=== PATIENT | male | born 1935 | race Caucasian/White ===

== ENCOUNTER 2017-01-11 21:30 | Inpatient (IN) | payer MEDICARE, OTHER ==
[~2017-01-11] VITALS: Ht 170.2 cm; Wt 82.2 kg
[~2017-01-11 21:30] MED LIST: ASPI-628 PO; LOSA100T3 PO; SIMV20TA4 PO
[2017-01-11 21:34] VITALS: BP 113/63; PULSE 124; RESP 22; O2SAT 94
[2017-01-11 22:05] LABS: BASOPHILS % (AUTO) 0.3 % (0-3); EOSINOPHILS % (AUTO) 1.4 % (0-5); MONOCYTES % (AUTO) 4.2 % (4-12); Mean Corpuscular Hemoglobin 34.7 pg (27.0-35.0); Mean Corpuscular Volume 101.3 fL (81-100); NEUTROPHILS % (AUTO) 90.1 % (40-74); Platelet Count 171 bil/L (150-400)
[2017-01-11] MEDS ORDERED: Alum-Mag Hydrox-Simeth 30 mL Suspension PO PRN (22:55)
[2017-01-11] MEDS ORDERED: Ondansetron 2 mg/mL 2 mL Inj IVPUSH PRN (22:55)
--- NOTE | 2017-01-11 23:07 | ED.REPORT ---
HPI-General Illness Date of Service Jan 11, 2017 ED Provider: Michel Segura MD Patient is an 81 year old male with a history of pacemaker and hypertension who presents to the ED complaining of a fever onset 1929. Associated symptoms include chills and tremulous hands. The patient reports that around 1929 he began feeling extremely cold and his hands were shaking so he decided to go to bed and had to keep his clothes on due to how cold he was. He denies chest pain (note that per nursing staff, the chief complaint was chest tightness), shortness of breath, dysuria, rash, headache, neck stiffness, vomiting, diarrhea or abdominal pain. Per the patient's , the was hot to the touch. He reports a cough but states this is not a new symptom and has not changed since he has had it. The patient denies any recent travel or contact with anyone else who is sick. Nursing Notes Stated Complaint: CHEST TIGHTNESS, FEVER, COUGH Chief Complaint: Chest Pain Nursing Notes Reviewed: Yes Allergies: Coded Allergies: No Known Allergies (Verified , 06/02/14) Scheduled Aspirin (Aspir 81) 81 Mg Tablet.dr 81 MG PO DAILY Losartan Potassium (Cozaar) 100 Mg Tablet 100 MG PO DAILY Simvastatin (Simvastatin) 20 Mg Tablet 20 MG PO HS General Time Seen by MD: 22:52 Chief Complaint Fever Hx Obtained From: Patient, Spouse Arrived By: Walk-in Sudden in Onset?: Yes Onset Occurred: 1 - 4 hours ago Symptom Duration: Since onset Severity: Current: No pain currently Similar Sx Previous: No Past Medical History Past Medical History Reports: Hypertension Past Surgical History pacemaker Smoking History Former Smoker Social History Other Social History: Good social support, Ambulatory Status Independent Review of Systems Full Review of Systems Constitutional: Reports: Chills, Fever Respiratory: Reports: Non-productive cough (not a new symptom), Denies: Shortness of breath Cardiovascular: Denies: Chest pain GI: Denies: Abdominal pain, Diarrhea, Nausea, Vomiting Male: Denies Dysuria Musculoskeletal: Denies: Neck pain Skin: Denies Itching, Denies Rash Neurologic: Denies: Headache Complete sys rev & neg: except as marked. Physical Exam Vital Signs Vital Signs Date Time Temp Pulse Resp B/P Pulse Ox O2 Delivery O2 Flow Rate FiO2 01/11/17 21:34 38.1 124 22 113/63 94 Room Air Initial VS: Reviewed General/Constitutional: Awake, Alert, Well appearing, Not toxic appearing Head / Eyes: Atraumatic, Normocephalic, PERRL, EOMI Neck: Atraumatic, Supple, Full range of motion Respiratory / Chest: Atraumatic, Breath sounds NL, Breath sounds = bilat, No respiratory distress Cardiovascular: Regular rhythm, Heart sounds NL, No gallop, No murmurs, No rubs Heart Rate / Rhythm: Positive: Tachycardia Abdomen: Atraumatic, Soft, Non-tender, No distention tolerates firm palpation Upper Extremities Upper Extremity / MS: Atraumatic, Full range of motion Lower Extremity / Pelvis / MS: Atraumatic, Non-tender, No edema Skin: Atraumatic, Color NL, No rash, Warm, Dry Neurologic: Oriented X3, Speech NL Psychiatric: Affect NL, Mood NL Interpretation & Diagnostics Lab Results Interpretation Result Diagram: 01/11/175 01/11/17 2253 Test 01/11/17 21:55 01/11/17 22:01 01/11/17 22:53 01/11/17 23:53 White Blood Count 3.6th/mm3 (3.8-10.1) Red Blood Count 4.52mil/mm3 (4.40-5.80) Hemoglobin 15.7g/dL (13.8-17.2) Hematocrit 45.8% (41.0-50.0) Mean Corpuscular Volume 101.3fL (81-100) Mean Corpuscular Hemoglobin 34.7pg (27.0-35.0) Mean Corpuscular Hemoglobin Concent 34.3% (32.0-37.0) Red Cell Distribution Width 12.8% (12.3-15.4) Platelet Count 171bil/L (150-400) Neutrophils (%) (Auto) 90.1% (40-74) Lymphocytes (%) (Auto) 3.4% (14-46) Monocytes (%) (Auto) 4.2% (4-12) Eosinophils (%) (Auto) 1.4% (0-5) Basophils (%) (Auto) 0.3% (0-3) Lactic Acid Level 0.2mmol/L (0.4-2.0) Sodium Level 139mEq/L (134-144) Potassium Level 3.7mEq/L (3.5-5.2) Chloride Level 103mEq/L (97-108) Carbon Dioxide Level 18mmol/L (18-29) Blood Urea Nitrogen 16mg/dL (8-27) Creatinine 0.77mg/dL (0.76-1.27) Estimat Glomerular Filtration Rate 103mL/min (>59) Glucose Level 194mg/dL (60-99) Calcium Level 9.3mg/dL (8.5-10.1) Magnesium Level 1.6mg/dL (1.6-2.6) Total Bilirubin 0.7mg/dL (0.0-1.2) Aspartate Amino Transf (AST/SGOT) 767U/L (0-50) Alanine Aminotransferase (ALT/SGPT) 463U/L (0-44) Alkaline Phosphatase 105U/L (25-160) Troponin T < 0.010ug/L (0.0-0.011) Total Protein 7.0g/dL (6.4-8.4) Albumin 4.1g/dL (3.4-5.0) Hold Jesus Top Tube Received (Received) Test 01/12/17 00:52 Urine Color Dark yellow (YELLOW) Urine Appearance Clear (CLEAR,HAZY) Urine pH 5.5 (5.0-8.0) Urine Specific [place] 1.025 (1.003-1.035) Urine Protein Tracemg/dL (NEG,TRACE) Urine Glucose (UA) Negativemg/dL (NEGATIVE) Urine Ketones Tracemg/dL (NEGATIVE) Urine Occult Blood Negative (NEGATIVE) Urine Nitrite Negative (NEGATIVE) Urine Bilirubin Negative (NEGATIVE) Urine Urobilinogen Normalmg/dL (NORMAL) Urine Leukocyte Esterase Negative (NEGATIVE) Urine RBC 0-2/hpf (0-2) Urine WBC 0-5/hpf (0-5) Urine Epithelial Cells Occasional/hpf (NONE-MOD) Urine Crystals None seen (NONE SEEN) Urine Bacteria None/hpf (NONE-FEW) Urine Hyaline Casts None/lpf (NONE) Urine Granular Casts None seen (NONE SEEN) Urine Waxy Casts None seen (NONE SEEN) Urine Red Blood Cell Casts None seen (NONE SEEN) Urine White Blood Cell Casts None seen (NONE SEEN) Urine Mucus Present (None Seen) Urine Trichomonas None seen (NONE SEEN) Urine Yeast None (NONE SEEN) Urinalysis Comment None Urine Culture Reflexed Not indicated ECG Interpretation ECG Interpretation: atrial ventricular paced rhythm, rate 117 compared to pror EKG from 06/13/14, was in atrial ventricular paced rhythm but is now tachycardic Time: 21:58 Interpreted by: ED physician X-Ray Chest Interpretation Chest Xray Interpretation: possible opactiy of the upper left lobe View: Portable, 1 view Interpretation / Wet Read by: Wet read ED physician Re-Eval/Medical Decision Med Decision/Clinical Course Patient is an 81 year old male with a history of pacemaker and hypertension who presents to the ED complaining of a fever onset 1929. Associated symptoms include chills and tremulous hands. The patient reports that around 1929 he began feeling extremely cold and his hands were shaking so he decided to go to bed and had to keep his clothes on due to how cold he was. He denies chest pain (note that per nursing staff, the chief complaint was chest tightness), shortness of breath, dysuria, rash, headache, neck stiffness, vomiting, diarrhea or abdominal pain. Per the patient's , the was hot to the touch. He reports a cough but states this is not a new symptom and has not changed since he has had it. The patient denies any recent travel or contact with anyone else who is sick. Here in the emergency department the patient is febrile and tachycardic though he is nontoxic in appearance and alert/awake. The patient was treated with Tylenol for fever and IV fluids. Chest X-ray: possible opacity of the upper left lobe I am not particularly convinced of a focal pneumonia. Labs: CBC showed leukopenia 3.6, stable hematocrit at 35.8 CMP: noteable for markedly elevated transaminases, negative trop, normal electrolytes, good kidney function, total bilirubin within normal limits. UA unconvincing for UTI Because of the patient's tachycardia and fever remains unclear. While he has significantly elevated transaminases. His abdomen is completely benign without any tenderness, or guarding, rigidity or rebound. I have ordered a right upper quadrant ultrasound though ultrasound is not immediately available and this will be performed in the morning. I see no convincing evidence of bacterial infection and I have opted to withhold antibiotics. The presence of elevated transaminases does raise the possibility of acute viral infection. He remained hemodynamically stable. Patient was discussed with admitting hospitalist and transferred for further workup and management. Time of Eval: 00:31 Re-Evaluation/Progress Note: Discussed results and plan for admit. Patient understands and agrees to plan. All questions were addressed. Consultation : Referral / Consult Name: Nadira Manzo DO Consulted With: Hospitalist Call Returned at: 02:04 Chief Counsel: Agrees with eval, Agrees with plan, Accepts admit Counseled Regarding: Diagnosis, Lab results, Need for admission Discharge & Departure Primary Impression: Fever Fever type: unspecified Qualified Code: R50.9 - Fever, unspecified Additional Impressions: Elevated transaminase level Tachycardia SIRS (systemic inflammatory response syndrome) Disposition: ADMITTED TO HOSPITAL Discharge Condition All VS Reviewed: Yes Condition: Stable Referrals: John Sweeney MD (PCP) Brandi Attestation Portions of this note were transcribed by Rola Fabian. I, Dr. Segura personally performed the history, physical exam and medical decision-making; I reviewed and confirmed the accuracy of the information in the transcribed note. Signed by: Brandi Ochoa, 01/11/17 copies to: John Sweeney MD, Beck O MD Jan 11, 2017 23:07 Anastasiya Fabian Jan 11, 2017 23:21
[2017-01-12] VITALS (9 sets, daily range): BP systolic 94–150; BP diastolic 64–81; PULSE 64–95; RESP 16–28; O2SAT 95–98
[2017-01-12 00:02] LABS: Magnesium 1.6 mg/dL (1.6-2.6); TROPONIN T < 0.010 ug/L (0.0-0.011)
[2017-01-12 01:01] LABS: APPEARANCE,URINE CLEAR (CLEAR,HAZY); COLOR,URINE DARK YELLOW (YELLOW); OCCULT BLOOD,URINE NEGATIVE (NEGATIVE); PH,URINE 5.5 (5.0-8.0); UROBILINOGEN,URINE NORMAL (NORMAL)
[2017-01-12] MEDS ORDERED: 0.9% Sodium Chloride 1,000 ML IV ONE (01:10)
[2017-01-12] MEDS ORDERED: Ondansetron 2 mg/mL 2 mL Inj IVPUSH PRN (02:20)
[2017-01-12] MEDS ORDERED: Alum-Mag Hydrox-Simeth 30 mL Suspension PO PRN (02:20)
[2017-01-12] MEDS ORDERED: Polyethylene Glycol (PEG) 17 Gm Powder PO PRN (02:20)
--- NOTE | 2017-01-12 03:17 | NUR ---
admit note: pt. admitted for fever, chills, shaking, chest pressure w/ occasional cough. Pt. drinks 3 alcoholic drinks per night, wine and mixed drinks. pt.'s face is flushed but he is afebrile, denies pain, denies n/v.
--- NOTE | 2017-01-12 04:43 | PCM.HPMED ---
Subjective Date of Service Jan 12, 2017 Primary Provider: Admitting Physician: Nadira Manzo DO Primary Care Physician: John Sweeney MD Attending Physician: Nadira Manzo DO Chief Complaint: Fever/chills History of Present Illness: Mr. Menendez is an 81-year-old male with past medical history of hypertension, syncope, ventricular tachycardia requiring pacemaker placement presented to the ED secondary to fever 1 day. Patient states this evening he was eating dinner with his neighbors at approximately 1930 hrs. when he had a sudden onset of fever/chills accompanied with tremulousness of his hands affecting him to the point where he had to leave dinner go home climb up stairs into his bed fully clothed to try to regain warmth. After about an hour of this his convinced him to present to the emergency department. Patient states that he has not had fevers before today although he has been diaphoretic all throughout his life. He denies any headache or visual changes, chest pain, shortness of breath, abdominal pain, GI or complaints or current numbness or extremity weakness/tingling. At time of interview patient states he feels back to normal , able to breast comfortably in hospital bed. He does not state that he has any sick contacts at home, denies recent travel. In the ED patient was found to be febrile and tachycardic, chest x-ray showed a possible opacity in the left upper lobe. White count was 3.6 and transaminases were markedly elevated. Ultrasound ordered for the morning of 01/12/2017 by ED physician. No antibiotics were initiated suspicion for infection was well. Patient given Tylenol and IV fluids with resolution of hyperthermia and normalization of heart rate. Of note patient is not every day drinker 3+ alcoholic drinks per night. Review of Systems: A comprehensive review of systems was conducted with the patient and found to be negative except as above in the history of present illness. Allergies Coded Allergies: No Known Allergies (Verified , 06/02/14) Home Medications Aspirin (Aspir 81) 81 Mg Tablet.dr 81 MG PO DAILY Losartan Potassium (Cozaar) 100 Mg Tablet 100 MG PO DAILY Simvastatin (Simvastatin) 20 Mg Tablet 20 MG PO HS PMH Ventricular tachycardia Syncope Hypertension Hyperlipidemia Surgical History Pacemaker Family History Patient states family history of heart disease both parents no known family history of cancer Social History Hx Alcohol Use: Yes (3+ drinks per day) Hx Substance Use: No Smoking Status: Former Smoker Living Arrangement: with Family Exam Vital Signs Vital Sign - Last Date Time Temp Pulse Resp B/P Pulse Ox O2 Delivery O2 Flow Rate FiO2 01/12/17 02:38 37.2 64 18 109/64 97 Room Air Intake and Output 01/11/17 01/11/17 01/12/17 Cumulative From/Thru 15:00 23:00 07:00 01/11/17 21:34 - 01/12/17 02:05 Intake Total 0 ml 1000 ml 1000 ml Balance 0 ml 1000 ml 1000 ml Intake Oral 0 ml 0 ml IV Total 1000 ml 1000 ml Exam General: Laying in hospital bed in no acute distress, well-developed, well- nourished, appropriately interactive HEENT: Normocephalic, atraumatic. External ears without defect. Pupils equal, round, and reactive to light and accommodation. Oropharynx free of erythema and cobble stoning with moist mucosa. Neck: Supple with full range of motion. No jugular venous distension. Cardiovascular: Regular rate and rhythm with no murmurs, rubs, or gallops appreciated Pulmonary: Clear to auscultation bilaterally with no crackles, wheezes, or rhonchi. Normal respiratory effort with no use of accessory muscles. Abdomen: Bowel tones present. Soft, nontender, nondistended. No hepatosplenomegaly or masses appreciated. Extremities: No clubbing, cyanosis, edema, or lymphadenopathy appreciated. Skin: Warm to touch, turgor, and texture, slight diaphoresis Neurological: Cranial nerves grossly intact. Psychiatric: Normal mood and affect. Alert and oriented to person, place, and time. Lab and Diagnostics Result Diagram: 01/11/175 01/11/17 2253 Microbiology Blood cultures pending Assessment & Plan Mr. Menendez is an 81-year-old male with past medical history of hypertension, syncope, ventricular tachycardia requiring pacemaker placement admitted for hyperthermia with elevated transaminases Sirs, present on admission, resolved -Sirs criteria met with WBC count less than 4, heart rate greater than 90 respiratory rate greater than 20 -All symptoms resolved post IV Tylenol administration -Continue to monitor Elevated transaminases, present on admission. Ongoing -Possibly secondary to alcohol use disorder, viral infection -Right upper quadrant ultrasound ordered -Hep panel ordered Leukopenia, present on admission. Ongoing -Differential includes infection, nutritional, alcoholism, leukemia -No outside records to compare -B12/folate panel ordered -Blood culture pending -Repeat labs Hypertension, present on admission, chronic -Restarted home losartan Hyperlipidemia, present on admission, chronic -Restarted home statin Alcohol use disorder, present on admission, chronic -Patient reportedly drinks 3+ alcoholic beverages daily -Monitor for signs of withdrawal Hyperglycemia, present on admission -A1c pending Patient Status: Patient was admitted under observational status pending further laboratory workup GI Prophylaxis: H2 ludin VTE Prophylaxis: Sub-Q Heparin (Unfractionated) Resuscitation Status: CPR: Attempt Resuscitation Attending Statement The patient was seen and examined together with house staff on 01/12/2017 and I agree with the history, exam and plan as outlined in the note above. SALINA DIMAS DO Jan 12, 2017 03:24 Nadira Manzo DO Jan 12, 2017 05:02
--- NOTE | 2017-01-12 07:24 | DRSVH ---
PROCEDURE: X-RAY CHEST ONE VIEW, PORTABLE ([id number]) INDICATIONS: CP, COUGH TECHNIQUE: One view of the chest was acquired. COMPARISON: [facility], CR, CHEST 2VW, 06/03/2014, 7:07. FINDINGS: Surgical changes and devices: Dual-lead cardiac pacer is unchanged. Lungs and pleura: No pleural effusions or pneumothorax. Lungs are clear. Mediastinum: Mediastinal contours appear normal. Heart size is normal. Bones and chest wall: No suspicious bony lesions. Overlying soft tissues appear unremarkable. IMPRESSION: No acute cardiopulmonary findings. Dictated by: Keren Avila M.D. on 01/12/2017 at 7:22 Approved by: Keren Avila M.D. on 01/12/2017 at 7:23
[2017-01-12 07:52] LABS: BASOPHILS % (AUTO) 0.3 % (0-3); EOSINOPHILS % (AUTO) 0.3 % (0-5); MONOCYTES % (AUTO) 12.4 % (4-12); Mean Corpuscular Hemoglobin 34.8 pg (27.0-35.0); Platelet Count 151 bil/L (150-400)
[2017-01-12] MEDS: Heparin 5,000 Unit/mL Inj SUBQ SCH ×2 (08:08→16:42)
[2017-01-12 08:29] LABS: Magnesium 1.9 mg/dL (1.6-2.6)
--- NOTE | 2017-01-12 09:47 | DRSVH ---
PROCEDURE: US ABDOMEN, LIMITED ([id number]) INDICATIONS: ruq, elevated transaminases TECHNIQUE: Real-time focused scanning was performed of the abdomen, with image documentation. COMPARISON: None. FINDINGS: The liver measures 15.3 cm in length and demonstrates increased echotexture. The gallbladde r wall measures 2.1 mm in thickness. No stones, sludge, pericholecystic fluid, or sonographic [place] sign. No intrahepatic biliary ductal dilatation. The common bile duct measures 3.5 mm in thickness. T he pancreas is not well-visualized. IMPRESSION: 1. No cholelithiasis or findings to suggest choledocholithiasis or acute cholecystitis. Dictated by: Keren Avila M.D. on 01/12/2017 at 9:43 Approved by: Keren Avila M.D. on 01/12/2017 at 9:46
[2017-01-12] MEDS ORDERED: cefTRIAXone Inj 1,000 MG in Dextrose 5% Minibag Plus 50 ML IV SCH (11:05)
[2017-01-12] MEDS: 0.9% Sodium Chloride 1,000 ML IV SCH ×2 (11:47→21:19)
--- NOTE | 2017-01-12 16:32 | DRSVH ---
PROCEDURE: CT ABDOMEN AND PELVIS WITH CONTRAST ([id number]) INDICATIONS: Sepsis, Transaminitis, Abd pain TECHNIQUE: After the administration of oral and intravenous contrast, 5 mm thick sections acquired from the diap hragms to the symphysis. 5 mm thick coronal and sagittal reformats were performed. For radiation do se reduction, the following was used: automated exposure control, adjustment of mA and/or kV accordi ng to patient size. COMPARISON: None. FINDINGS: Image quality: Excellent. ABDOMEN: Lung bases: Lung bases are clear. Heart size is normal. Solid organs: The liver is diffusely hypodense suggesting hepatic steatosis. The spleen demonstrates normal size and enhancement. Gallbladder is mildly contracted. Biliary system is non-dilated. Panc reas enhances normally. No adrenal nodules. Kidneys are normal in size and enhancement, without hyd ronephrosis. Peritoneum and bowel: Stomach, small bowel, and colon loops are normal in caliber and wall thickness . The appendix is thin walled and gas filled. No free fluid or air. Nodes and vessels: No retroperitoneal or mesenteric adenopathy. Aorta and inferior vena cava are no rmal in caliber. There are scattered atheromatous calcifications throughout the aorta and iliac alfonso oli bilaterally. Miscellaneous: No ventral hernias. PELVIS: Genitourinary: Bladder wall thickness is normal. There are small bilateral bladder diverticula poste riorly. Miscellaneous: No inguinal adenopathy. There small bilateral fat-containing inguinal hernias. Bones: No suspicious bony lesions. No vertebral body compression fractures. Severe degenerative ch anges present throughout the lumbar spine. IMPRESSION: 1. No acute intra-abdominal findings. Normal appendix. 2. Hepatic steatosis which may be related to the patient's transaminitis. Dictated by: Keren Avila M.D. on 01/12/2017 at 16:25 Approved by: Keren Avila M.D. on 01/12/2017 at 16:30
--- NOTE | 2017-01-12 18:17 | NUR ---
uneventful shift Pt was cooperative with care. No complaints. Awaiting test results. Denies and s/sx that brought patient to hospital. Has tolerated PO food, fluids and RX
[2017-01-13] MEDS: Heparin 5,000 Unit/mL Inj SUBQ SCH ×3 (00:56→16:30)
[2017-01-13 01:05] VITALS: BP 154/84; PULSE 75; RESP 16; O2SAT 97
--- NOTE | 2017-01-13 04:57 | NUR ---
Afebrile: Pt has been afebrile through the night. Denies pain/SOB. Has been able to sleep between care tonight. Getting up independently in room, denies dizziness when up.
[2017-01-13 05:26] VITALS: BP 132/75; PULSE 62; RESP 16; O2SAT 97
[2017-01-13 06:08] LABS: Hepatitis A Antibody IgM Negative (Negative); Hepatitis B Core Antibody IgM Negative (Negative)
[2017-01-13 07:03] LABS: BASOPHILS % (AUTO) 0.6 % (0-3); EOSINOPHILS % (AUTO) 5.9 % (0-5); MONOCYTES % (AUTO) 17.5 % (4-12); Mean Corpuscular Hemoglobin 35.5 pg (27.0-35.0); Mean Corpuscular Volume 101.3 fL (81-100); NEUTROPHILS % (AUTO) 47.5 % (40-74); Platelet Count 137 bil/L (150-400)
[2017-01-13 07:09] LABS: INR 0.97 ratio
[2017-01-13 07:17] LABS: Bilirubin, Direct 0.2 mg/dL (0.0-0.3)
[2017-01-13] MEDS: 0.9% Sodium Chloride 1,000 ML IV SCH (08:18)
[2017-01-13 09:26] VITALS: BP 155/57; PULSE 66; RESP 18; O2SAT 96
[2017-01-13 13:31] VITALS: BP 161/85; PULSE 69; RESP 16; O2SAT 97
--- NOTE | 2017-01-13 14:17 | NUR ---
Social Work-initial assessment/readiness for discharge/multidisciplinary rounds: Data:See initial assessment. Pt is a 81 y/o male who was admitted on 01/12/17 for fever per H&P. Pt's insurance is [employer] and PCP is John Sweeney MD. EMR Reviewed. Pt's readmission score is 0. SW met with pt at bedside, SW role explained. Pt is alert and oriented x3. Pt resides at home with his in a two story home in [facility] where pt remains independent with ADLs. Pt drives and does not use any DME. Pt has no HH or SNF history. Pt has no skilled nursing care insurance or VA benefits. SW discussed DPOA/ advanced directive, pt confirms this has been completed, SW encouraged a copy to be brought in. Pt discussed during multidisciplinary rounds, no concerns noted from MD [employer] regarding pt's capacity for self care, pt has been up independent in his room. Pt confirms his will provide transport home at discharge. SW provided pt with discharge planning checklist and encouraged pt to call with any questions,phone number provided on white board. No anticipated discharge needs. SW will continue to follow if needs arise. Assessment:Pt who is independent at baseline. Plan:Pt to discharge home when medically stable via POV. No anticipated discharge needs. SW will continue to follow if needs arise. DIONICIO Blair Addendum: 01/13/17 at 1418 by JAMES REBOLLAR SS Amended: Links added.
[2017-01-13 15:16] LABS: Bilirubin, Direct 0.2 mg/dL (0.0-0.3)
--- NOTE | 2017-01-13 16:42 | PCM.DC.MED ---
Discharge Summary Date of Service Jan 13, 2017 Dates of Hospitalization Date of Hospital Admission Jan 12, 2017 at 01:07 Date of Discharge: Jan 13, 2017 Providers: Admitting Physician: Nadira Manzo DO Primary Care Physician: John Sweeney MD Attending Physician: Amilcar Preston MD Diagnosis at Time of Discharge Diagnosis at Time of Discharge Sirs likely due to dehydration, present on admission, resolved Elevated transaminases, present on admission. Improving. Leukopenia, present on admission. resolved. Hypertension, present on admission, chronic Hyperlipidemia, present on admission, chronic Alcohol use disorder, present on admission, chronic Prediabetes, present on admission, active Procedures XRay, CTs & MRIs [facility] Diagnostic Imaging Department [place], [place] [id number] Patient Name: SUKUMAR MENENDEZ MR#: [id number] Location: [facility] [place] Ordering Phys: Amilcar Preston MD Date of Service: 01/12/17 1256 PROCEDURE: CT ABDOMEN AND PELVIS WITH CONTRAST ([id number]) INDICATIONS: Sepsis, Transaminitis, Abd pain TECHNIQUE: After the administration of oral and intravenous contrast, 5 mm thick sections acquired from the diaphragms to the symphysis. 5 mm thick coronal and sagittal reformats were performed. For radiation dose reduction, the following was used : automated exposure control, adjustment of mA and/or kV according to patient size. COMPARISON: None. FINDINGS: Image quality: Excellent. ABDOMEN: Lung bases: Lung bases are clear. Heart size is normal. Solid organs: The liver is diffusely hypodense suggesting hepatic steatosis. The spleen demonstrates normal size and enhancement. Gallbladder is mildly contracted. Biliary system is non-dilated. Pancreas enhances normally. No adrenal nodules. Kidneys are normal in size and enhancement, without hydronephrosis. Peritoneum and bowel: Stomach, small bowel, and colon loops are normal in caliber and wall thickness. The appendix is thin walled and gas filled. No free fluid or air. Nodes and vessels: No retroperitoneal or mesenteric adenopathy. Aorta and inferior vena cava are normal in caliber. There are scattered atheromatous calcifications throughout the aorta and iliac arteries bilaterally. Miscellaneous: No ventral hernias. PELVIS: Genitourinary: Bladder wall thickness is normal. There are small bilateral bladder diverticula posteriorly. Miscellaneous: No inguinal adenopathy. There small bilateral fat-containing inguinal hernias. Bones: No suspicious bony lesions. No vertebral body compression fractures. Severe degenerative changes present throughout the lumbar spine. IMPRESSION: 1. No acute intra-abdominal findings. Normal appendix. 2. Hepatic steatosis which may be related to the patient's transaminitis. Dictated by: Keren Avila M.D. on 01/12/2017 at 16:25 Approved by: Keren Avila M.D. on 01/12/2017 at 16:30 Brief History Per HPI by Dr. Armenta on 01/12- Mr. Menendez is an 81-year-old male with past medical history of hypertension, syncope, ventricular tachycardia requiring pacemaker placement presented to the ED secondary to fever 1 day. Patient states this evening he was eating dinner with his neighbors at approximately 1930 hrs. when he had a sudden onset of fever/chills accompanied with tremulousness of his hands affecting him to the point where he had to leave dinner go home climb up stairs into his bed fully clothed to try to regain warmth. After about an hour of this his convinced him to present to the emergency department. Patient states that he has not had fevers before today although he has been diaphoretic all throughout his life. He denies any headache or visual changes, chest pain, shortness of breath, abdominal pain, GI or complaints or current numbness or extremity weakness/tingling. At time of interview patient states he feels back to normal , able to breast comfortably in hospital bed. He does not state that he has any sick contacts at home, denies recent travel. In the ED patient was found to be febrile and tachycardic, chest x-ray showed a possible opacity in the left upper lobe. White count was 3.6 and transaminases were markedly elevated. Ultrasound ordered for the morning of 01/12/2017 by ED physician. No antibiotics were initiated suspicion for infection was well. Patient given Tylenol and IV fluids with resolution of hyperthermia and normalization of heart rate. Of note patient is not every day drinker 3+ alcoholic drinks per night. Hospital Course Mr. Menendez is an 81-year-old male with past medical history of hypertension, syncope, ventricular tachycardia requiring pacemaker placement admitted for hyperthermia with elevated transaminases Sirs likely due to dehydration, present on admission, resolved -Sirs criteria met with WBC count less than 4, heart rate greater than 90 respiratory rate greater than 20 -All symptoms resolved post IV Tylenol administration. Unlikely due to infection. Possibly mild alcohol withdrawal. Elevated transaminases, present on admission. Improving. likely 2/2 to hepatic steatosis with acute dehydration. Steatosis risk factor daily alcohol use, HLD. -Hepatitis panel- negative. CT ABD-+Hepatic Steatosis. No evid of infection or malignancy. -Right upper quadrant ultrasound- no abn. -Pt liver enzymes have trended down after starting IVF, suspect pt was dehydrated. -Will discharge patient with plan to see PCP in 1 week for repeat Liver Function tests. - Pt educated on lifestyle modifications including diet, exercise, and avoid of alcohol. - Hold Atorvastatin until follow up with PCP. Leukopenia, present on admission. resolved. -WBC 3.6 improved to 6.1 next AM. Afebrile >24 hours. Differential includes infection, nutritional, alcoholism. -B12/folate panel ordered- wnl. Hypertension, present on admission, chronic -Restarted home losartan Hyperlipidemia, present on admission, chronic -Holding home statin upon discharge. Alcohol use disorder, present on admission, chronic -Patient reportedly drinks 3+ alcoholic beverages daily -Possibly mild WD symptoms. -Education provided. Prediabetes, present on admission, active -A1c is 6.3 - Labs are consistent with Pre-Diabetes. Education provided. - Get repeat labs in 3 months to recheck diabetes screening tests. Disposition- - Hold Atorvastatin until follow up with PCP. - Labs are consistent with Pre-Diabetes. Get repeat labs in 3 months to recheck diabetes screening tests. - Pt educated on lifestyle modifications including diet, exercise, and avoid of alcohol. - Follow up with PCP in 1 week for repeat Liver Function tests. Exam Vital Signs (Last) Date Time Temp Pulse Resp B/P Pulse Ox O2 Delivery O2 Flow Rate FiO2 01/13/17 13:31 36.4 69 16 161/85 97 Room Air Exam General: no acute distress, well-developed, well-nourished, appropriately interactive HEENT: Normocephalic, atraumatic. External ears without defect. Pupils equal, round, and reactive to light and accommodation. Oropharynx free of erythema and cobble stoning with moist mucosa. Neck: Supple with full range of motion. No jugular venous distension. Cardiovascular: Regular rate and rhythm with no murmurs, rubs, or gallops appreciated Pulmonary: Clear to auscultation bilaterally with no crackles, wheezes, or rhonchi. Normal respiratory effort with no use of accessory muscles. Abdomen: Bowel tones present. Soft, nontender, nondistended. No hepatosplenomegaly or masses appreciated. Extremities: No clubbing, cyanosis, edema, or lymphadenopathy appreciated. Skin: Warm to touch, turgor, and texture, slight diaphoresis Neurological: Cranial nerves grossly intact. Psychiatric: Normal mood and affect. Alert and oriented to person, place, and time. Test 01/11/17 22:01 01/11/17 22:53 01/11/17 23:53 01/12/17 00:52 Lactic Acid Level 0.2mmol/L (0.4-2.0) Troponin T < 0.010ug/L (0.0-0.011) Hold Jesus Top Tube Received (Received) Urine Color Dark yellow (YELLOW) Urine Appearance Clear (CLEAR,HAZY) Urine pH 5.5 (5.0-8.0) Urine Specific [place] 1.025 (1.003-1.035) Urine Protein Tracemg/dL (NEG,TRACE) Urine Glucose (UA) Negativemg/dL (NEGATIVE) Urine Ketones Tracemg/dL (NEGATIVE) Urine Occult Blood Negative (NEGATIVE) Urine Nitrite Negative (NEGATIVE) Urine Bilirubin Negative (NEGATIVE) Urine Urobilinogen Normalmg/dL (NORMAL) Urine Leukocyte Esterase Negative (NEGATIVE) Urine RBC 0-2/hpf (0-2) Urine WBC 0-5/hpf (0-5) Urine Epithelial Cells Occasional/hpf (NONE-MOD) Urine Crystals None seen (NONE SEEN) Urine Bacteria None/hpf (NONE-FEW) Urine Hyaline Casts None/lpf (NONE) Urine Granular Casts None seen (NONE SEEN) Urine Waxy Casts None seen (NONE SEEN) Urine Red Blood Cell Casts None seen (NONE SEEN) Urine White Blood Cell Casts None seen (NONE SEEN) Urine Mucus Present (None Seen) Urine Trichomonas None seen (NONE SEEN) Urine Yeast None (NONE SEEN) Urinalysis Comment None Urine Culture Reflexed Not indicated Test 01/12/17 07:20 01/13/17 06:25 01/13/17 14:30 Hemoglobin A1c 6.3% (4.8-5.6) Magnesium Level 1.9mg/dL (1.6-2.6) Lipase 18U/L (13-60) Hepatitis A IgM Antibody Negative (Negative) Hepatitis B Surface Antigen Negative (Negative) Hepatitis B Core IgM Antibody Negative (Negative) Hepatitis C Antibody <0.1s/co ratio (0.0-0.9) Hepatitis C Comment Comment (.) White Blood Count 4.7th/mm3 (3.8-10.1) Red Blood Count 3.72mil/mm3 (4.40-5.80) Hemoglobin 13.2g/dL (13.8-17.2) Hematocrit 37.7% (41.0-50.0) Mean Corpuscular Volume 101.3fL (81-100) Mean Corpuscular Hemoglobin 35.5pg (27.0-35.0) Mean Corpuscular Hemoglobin Concent 35.0% (32.0-37.0) Red Cell Distribution Width 13.1% (12.3-15.4) Platelet Count 137bil/L (150-400) Neutrophils (%) (Auto) 47.5% (40-74) Lymphocytes (%) (Auto) 28.3% (14-46) Monocytes (%) (Auto) 17.5% (4-12) Eosinophils (%) (Auto) 5.9% (0-5) Basophils (%) (Auto) 0.6% (0-3) Prothrombin Time 10.4sec (8.1-12.5) Prothromb Time International Ratio 0.97ratio Sodium Level 142mEq/L (134-144) Potassium Level 4.4mEq/L (3.5-5.2) Chloride Level 110mEq/L (97-108) Carbon Dioxide Level 19mmol/L (18-29) Blood Urea Nitrogen 12mg/dL (8-27) Creatinine 0.69mg/dL (0.76-1.27) Estimat Glomerular Filtration Rate 117mL/min (>59) Glucose Level 147mg/dL (60-99) Calcium Level 8.4mg/dL (8.5-10.1) Total Bilirubin 0.4mg/dL (0.0-1.2) Direct Bilirubin 0.2mg/dL (0.0-0.3) Aspartate Amino Transf (AST/SGOT) 136U/L (0-50) Alanine Aminotransferase (ALT/SGPT) 316U/L (0-44) Alkaline Phosphatase 91U/L (25-160) Total Protein 6.4g/dL (6.4-8.4) Albumin 3.9g/dL (3.4-5.0) Procalcitonin 1.41ng/mL (0.00-0.08) Microbiology Results Blood cultures pending Discharge Medications Discharge Medications Aspirin (Aspir 81) 81 Mg Tablet.dr 81 MG PO DAILY (Reported) Losartan Potassium (Cozaar) 100 Mg Tablet 100 MG PO DAILY (Reported) Simvastatin (Simvastatin) 20 Mg Tablet 20 MG PO HS (Reported) Additional med instructions Hold Atorvastatin until follow up with PCP. Followup Plan Disposition: home Follow-up plan - Labs are consistent with Pre-Diabetes. Get repeat labs in 3 months to recheck diabetes screening tests. - Pt educated on lifestyle modifications including diet, exercise, and avoid of alcohol. - Follow up with PCP in 1 week for repeat Liver Function tests. Follow-up Provider: John Sweeney MD Follow-up with PCP in: 1 week Time spent Greater than 30 minutes was spent in preparation of discharge with greater than 50% of that time dedicated to patient counseling and coordination of care. Amilcar Preston MD Jan 13, 2017 16:41
--- NOTE | 2017-01-13 16:45 | PCM.DIMED ---
Discharge Instructions Date of Service Jan 13, 2017 Dates of Hospitalization Jan 12, 2017 at 01:07 Discharge Diagnosis Discharge Diagnosis Sirs likely due to dehydration, present on admission, resolved Elevated transaminases, present on admission. Improving. Leukopenia, present on admission. resolved. Hypertension, present on admission, chronic Hyperlipidemia, present on admission, chronic Alcohol use disorder, present on admission, chronic Prediabetes, present on admission, active Medication Instructions Additional med instructions Hold Atorvastatin until follow up with PCP. Activity Discharge Activity: No restrictions Patient Instructions Follow-up plan - Labs are consistent with Pre-Diabetes. Get repeat labs in 3 months to recheck diabetes screening tests. - Pt educated on lifestyle modifications including diet, exercise, and avoid of alcohol. - Follow up with PCP in 1 week for repeat Liver Function tests. Follow-up Provider: John Sweeney MD Follow-up with PCP in: 1 week Amilcar Preston MD Jan 13, 2017 16:45
--- NOTE | 2017-01-13 17:18 | NUR ---
Social Work-discharge: Data:EMR reviewed. Pt is on day 1 of hospitalization for fever per H&P. Pt is medically stable for discharge. Pt has been up independent in his room. No discharge needs identified. All updated and agreeable to plan. Assessment:Pt who is independent at baseline. Plan:Pt to discharge home today via POV. No discharge needs identified. All updated and agreeable to plan. DIONICIO Blair
--- NOTE | 2017-01-13 17:22 | NUR ---
Discharge Addendum: 01/13/17 at 1725 by FAIZAN GALAVIZ RN PT discharged at this time, all belongings gathered and returned to pt. No new scripts given. VSS, no complains of increased pain of fever. Discharge packet printed and reviewed with pt. Pt dressed and awaiting ride home in private vehicle driven by friend.
[2017-01-14 03:09] LABS: Vitamin B12 >1999 pg/mL (211-946)
== END 2017-01-13 17:33 | disposition home or self-care (01) | DRG 641 ==
LOC: SED 21:30 → MPC 01-12 01:07 → INTOOBSV 01-12 01:07 → OBSVTOIN 01-12 01:07
PROVIDERS: ADMIT Internal Medicine; ATTEND Internal Medicine
DX: E86.0 Dehydration (principal); R50.9 Fever, unspecified; E78.5 Hyperlipidemia, unspecified; I10 Essential (primary) hypertension; R73.9 Hyperglycemia, unspecified; Z72.89 Other problems related to lifestyle; Z87.891 Personal history of nicotine dependence; Z95.0 Presence of cardiac pacemaker; Z79.82 Long term (current) use of aspirin